=== PATIENT | female | born 1990 | race Caucasian/White ===

== ENCOUNTER → 2017-02-22 | Outpatient (REF) | payer MEDICAID ==
[~2017-02-22] MED LIST: ACET50TA PO; IBUP-1114 PO; PRENTAB9 PO; PROZ20CA11 PO
[2017-02-22 19:08] LABS: MEAN CORPUSCULAR HGB CONC 34.6 g/dl (32.0-36.5); MEAN CORPUSCULAR VOLUME 92.6 fl (80.0-96.0); RED CELL DISTRIBUTION WIDTH 12.9 % (11.5-14.5); WHITE BLOOD COUNT 15.9 K/mm3 (4.0-10.0)
== END ==
LOC: M LAB REF 13:59
PROVIDERS: ATTEND Advanced Practice Midwife
DX: Z34.83 Encounter for supervision of other normal pregnancy, third trimester (principal); Z36 Encounter for antenatal screening of mother; Z3A.00 Weeks of gestation of pregnancy not specified

== ENCOUNTER → 2017-02-26 | Outpatient (CLI) | payer MEDICAID | LOC: M LAB 11:25 | PROVIDERS: ATTEND Advanced Practice Midwife | DX: Z36 Encounter for antenatal screening of mother (principal); Z3A.00 Weeks of gestation of pregnancy not specified ==

== ENCOUNTER → 2017-03-23 | Outpatient (REF) | payer MEDICAID | LOC: M LAB REF 13:22 | PROVIDERS: ATTEND Advanced Practice Midwife | DX: Z34.83 Encounter for supervision of other normal pregnancy, third trimester (principal) ==

== ENCOUNTER 2017-03-25 00:17 | Outpatient (CLI) | payer MEDICAID ==
[~2017-03-25] VITALS: Ht 157.5 cm; Wt 80.0 kg
[2017-03-25 00:43] VITALS: BP 117/71
[2017-03-25 08:22] VITALS: BP 111/62
== END 2017-03-25 08:40 | disposition home or self-care (01) ==
LOC: M LDO 00:17
PROVIDERS: ATTEND Obstetrics & Gynecology
DX: O47.03 False labor before 37 completed weeks of gestation, third trimester (principal); Z3A.36 36 weeks gestation of pregnancy; Z88.2 Allergy status to sulfonamides

== ENCOUNTER 2017-04-15 23:48 | Inpatient (IN) | payer MEDICAID, OTHER ==
[~2017-04-15] VITALS: Ht 157.5 cm; Wt 83.0 kg
[2017-04-16] VITALS (16 sets, daily range): BP systolic 103–132; BP diastolic 51–73
[2017-04-16] MEDS ORDERED: LR 1,000 ML IV SCH (00:49)
[2017-04-16] MEDS ORDERED: LACTATED RINGER'S 1000 ML IV STA (00:49)
[2017-04-16 01:22] LABS: MEAN CORPUSCULAR HEMOGLOBIN 31.3 pg (27.0-33.0); MEAN CORPUSCULAR HGB CONC 35.1 g/dl (32.0-36.5); MEAN CORPUSCULAR VOLUME 89.1 fl (80.0-96.0); RED CELL DISTRIBUTION WIDTH 13.1 % (11.5-14.5); WHITE BLOOD COUNT 23.5 10^3/uL (4.0-10.0)
[2017-04-16] MEDS ORDERED: OXYTOCIN 30 UNITS IN 0.9% NaCl 500ML IV BAG (J2590) As Ordered ONE (01:53)
--- NOTE | 2017-04-16 01:57 | HPEPDOC ---
Obstetrical History & Physical General Date of Admission Apr 16, 2017 at 00:47 Primary Care Physician: JEAN MADDOX CNM History of Present Illness Patient is a 27 year-old female who is a at 39.2 weeks gestation with an ADALI of 04/21/17 based off of her 1st trimester ultrasound and consistent with her LMP. She initiated care in her first trimester and transferred her care to [facility]. Her has been complicated by depression and anxiety as she stopped taking her antidepressive medication with . She has been see by [facility] for counseling and is planning on starting back on her Prozac after delivery. She presents to L&D with complaints of contractions every 5 minutes for 1.5 hours and bloody show. She denies leaking of fluid. Reports active movement. Chief Complaint: Contractions, term, Active Labor Information Provided By: Patient Age: 27 : 3 Term: 1 Pre-term: 0 Abortions: 1 Livin Dating Final EDC: Apr 21, 2017 Final EDC by: 1st trimester (US) LMP: Jul 14, 2016 EGA at Admission: 39.2 Antepartum Course Height (inches): 62 Pre- weight (lbs.): 135 Admission Weight (lbs.): 182 Change in Weight (lbs.): 47 Past Medical History Past Obstetrical History : Past Obstetrical History: Multigravida Gestation: 42 Type of Delivery: Spontaneous Vaginal Del. (January 2011) Sex of : Female (weighting 7 lbs 2 oz. ) Complications: No EMERGENCY MANAGEMENT SPECIALIST History: History of STD Past Medical History Medical History Varicella as a child Surgical History: Denies/None Family History Significant Family History: Other (father with alcoholism) Social History Social history Patient caring for her father, who has alcoholism. FOB is not involved. Marital Status: Single Psychosocial History: Anxiety, Depression * Smoker: current smoker Alcohol: Denies Drugs: denies Abuse Violence Screening Have you been hit/kicked/slapp: No Have you been sexually assault: No Imunizations Tdap status: current Allergies Coded Allergies: Sulfa Antibiotics (Verified Adverse Reaction, Unknown, RASH, 03/25/17) Physical Examination Physical Examination GENERAL: Alert and oriented times three. BREAST: . ABDOMEN: Gravid and non-tender to touch. FETUS: Is vertex (VTX) by sterile vaginal examination (SVE), fetus is vertex ( VTX) by Sanjay. HEART RATE: Regular rate and rhythm. LUNGS: Clear to auscultation (CTA). EXTREMITIES: No edema. No clonus. Laboratory Data 24H LABS Laboratory Tests 2 04/16/17 00:53: Serology Scanned Report Hepatitis B Testing 04/16/17 01:01: Nucleated Red Blood Cells % (auto) 0.0 CBC/BMP Laboratory Tests 04/16/17 01:01 Red Blood Count 3.84 L, Mean Corpuscular Volume 89.1, Mean Corpuscular Hemoglobin 31.3, Mean Corpuscular Hemoglobin Concent 35.1, Red Cell Distribution Width 13.1 Pertinent Laboratoy Data Blood Type: B+ RBC Antibody Screen: Negative HIV: Negative Hepatitis B: Negative Hepatitis C: Negative Rapid Plasma Reagin: Nonreactive Rubella: Immune Varicella: Positive Chlamydia/Gonorrhea: Negative Group B Streptococcus: Negative Quad Screen Test: Negative Glucose Tolerance Test: 76 Vaginal Examination Dilation: 4 cm Effacement: Other (100%) Station: 0 Cervical Position: Anterior Presentation: Cephalic presentation Position: Four quadrants Assessment Heart Rate (FHR): 130 Variability: Moderate Accelerations: Positive Decelerations: None Tocometer Contractions: Yes Frequency: regular, other (2-3 minutes) Multi-drug resistant Organism: No history of MDRO Assessment/Plan Assessment IUP at 39.2 weeks gestation Active labor Category I FHR tracing Plan Admit to L&D. Saline lock and labs per protocol. OOB ad iliana clear liquid diet Anesthesia consult per patient's request. Anticipate cervical change and . JEAN MADDOX CNM Apr 16, 2017 01:57
[2017-04-16] MEDS ORDERED: EPIDURAL/PCA KEYS XX PRN (02:06)
[2017-04-16] MEDS ORDERED: EPIDURAL COMMENT XX SCH (02:06)
[2017-04-16] MEDS ORDERED: ePHEDrine SULFATE 25 MG/5 ML(5MG/ML) SYRINGE IV PRN (02:06)
[2017-04-16] MEDS ORDERED: NALOXONE INJ 0.4 MG/1 ML VIAL (J2310) IV PRN (02:06)
[2017-04-16] MEDS ORDERED: LACTATED RINGER'S 1000 ML IV PRN (02:06)
[2017-04-16] MEDS ORDERED: ONDANSETRON 4MG/2ML VIAL (J2405) IV PRN (02:06)
[2017-04-16] MEDS ORDERED: FENTANYL/ROPIVACAINE/NACL BAG 200 ML EPIDURAL SCH (02:06)
[2017-04-16] MEDS ORDERED: FENTANYL 2MCG/ML ROPIVACAINE 0.2% IN 0.9% NACL 200ML IVBAG As Ordered ONE (02:06)
[2017-04-16] MEDS ORDERED: REFRIGERATOR IV KEYS XX PRN (02:06)
[2017-04-16] MEDS ORDERED: diphenhydrAMINE INJ 50MG/ML VIAL (J1200) IV PRN (02:06)
[2017-04-16] MEDS ORDERED: OXYTOCIN DRIP 30 UNITS in APPROPRIATE DILUENT 1 EA IV SCH (06:43)
[2017-04-16] MEDS ORDERED: RHOGAM 300 MCG (1500 IU) INJ (J2790) IM SCH (06:45)
[2017-04-16] MEDS ORDERED: MEASLES,MUMPS,RUBELLA VACCINE INJ (MMR-II) (90707) SC SCH (06:45)
[2017-04-16] MEDS ORDERED: ACETAMINOPHEN 500 MG TAB PO PRN (06:45)
[2017-04-16] MEDS ORDERED: DIBUCAINE 1% OINTMENT 30GM TOP PRN (06:45)
[2017-04-16] MEDS ORDERED: DOCUSATE SODIUM 100 MG CAP PO PRN (06:45)
[2017-04-16] MEDS ORDERED: METHYLERGONOVINE MALEATE 0.2 MG TAB PO PRN (06:45)
[2017-04-16] MEDS ORDERED: ANUSOL HC CREAM 30GM TOP PRN (06:45)
--- NOTE | 2017-04-16 07:11 | DNPDOC ---
[facility] Delivery Note Delivery Note DATE OF DELIVERY: 04/16/17 at 0600. PROCEDURE: Spontaneous vaginal delivery. Provider: Jean Parks CNM, SAUD ANESTHESIA: epidural ESTIMATED BLOOD LOSS: 200 mL. FINDINGS: 6 pounds 14 ounces, 3110 grams, female , Score 8/9. DELIVERY SUMMARY: Patient is a 27-year-old female who is now a at 39.3 weeks gestation who presented to L&D in active labor. She received an epidural for pain management. She progressed to fully dilated at 0552 and pushed to a living female in the ZEKE position with restitution to ROT at 0600. The shoulders delivered with ease and the corpus immediately followed. The baby was placed on the maternal abdomen, skin to skin, active and crying. The cord was clamped x 2 after pulsation stopped and cut by the patient's father. A 3 vessel cord was noted. The placenta delivered spontaneously and intact via Black mechanism at 0615. Uterine hemostasis achieved via rapid infusion of IV Pitocin and fundal massage. The perineum and vagina were inspected and found to have a left labial abrasion that required no repair. Mom is going to bottle feed . She is naming the baby "Melissa." JEAN PARKS CNM Apr 16, 2017 07:11
[2017-04-16] MEDS: PRENATAL VITAMINS CHEWABLE TABLET PO SCH (09:00)
[2017-04-16] MEDS: FLUoxetine 20 MG CAP PO SCH (10:59)
[2017-04-16] MEDS: IBUPROFEN 800 MG TAB PO PRN ×2 (11:02→19:57)
[2017-04-17 06:30] VITALS: BP 109/59
[2017-04-17] MEDS: PRENATAL VITAMINS CHEWABLE TABLET PO SCH (09:00)
[2017-04-17] MEDS: FLUoxetine 20 MG CAP PO SCH (09:14)
[2017-04-17] MEDS: IBUPROFEN 800 MG TAB PO PRN (11:27)
[2017-04-17] MEDS ORDERED: IBUP-1114 PO (14:56)
[2017-04-17] MEDS ORDERED: PRENTAB9 PO (14:56)
[2017-04-17] MEDS ORDERED: ACET50TA PO (14:56)
[2017-04-17] MEDS ORDERED: PROZ20CA11 PO (14:57)
== END 2017-04-17 16:10 | disposition home or self-care (01) | DRG 560 ==
LOC: M LDO 23:48 → M LDI 04-16 00:47 → M OBS 04-16 08:47
PROVIDERS: ADMIT Advanced Practice Midwife; ATTEND Advanced Practice Midwife
PROC: 10E0XZZ Delivery of Products of Conception, External Approach (ICD-10-PCS; principal; 2017-04-16)
PROC: 10907ZC Drainage of Amniotic Fluid, Therapeutic from Products of Conception, Via Natural or Artificial Opening (ICD-10-PCS; 2017-04-16)
DX: O99.344 Other mental disorders complicating childbirth (principal); F32.9 Major depressive disorder, single episode, unspecified; F41.9 Anxiety disorder, unspecified; O99.334 Smoking (tobacco) complicating childbirth; F17.210 Nicotine dependence, cigarettes, uncomplicated; Z37.0 Single live birth; Z3A.39 39 weeks gestation of pregnancy

== ENCOUNTER → 2017-11-28 | Outpatient (REF) | payer OTHER ==
[2017-11-28 19:01] LABS: APPEARANCE, URINE HAZY (CLEAR); BACTERIA, URINE AUTO 1+ (NEGATIVE); BILIRUBIN, URINE AUTO NEGATIVE (NEGATIVE); BLOOD, URINE BLOOD 1+ (NEGATIVE); COLOR, URINE YELLOW (YELLOW); GLUCOSE, URINE (UA) AUTO NEGATIVE (NEGATIVE); KETONE, URINE AUTO 1+ mg/dL (NEGATIVE); LEUKOCYTE ESTERASE, URINE AUTO 2+ (NEGATIVE); MUCUS, URINE SMALL (NEGATIVE); NITRITE, URINE AUTO NEGATIVE (NEGATIVE); PROTEIN, URINE AUTO 1+ mg/dL (NEGATIVE); RBC, URINE AUTO 5 /HPF (0-3); SPECIFIC GRAVITY URINE AUTO 1.021 (1.002-1.035); SQUAMOUS EPITHELIAL CELL UR AU 1 /HPF (0-6); WBC, URINE AUTO TNTC /HPF (0-3)
== END ==
LOC: M LAB REF 11:43
DX: N39.0 Urinary tract infection, site not specified (principal)

== ENCOUNTER → 2018-03-10 | Outpatient (REF) | payer OTHER ==
[2018-03-10 13:30] LABS: HEMATOCRIT 36.2 % (36.0-47.0); HEMOGLOBIN 12.6 g/dl (12.0-15.5); MEAN CORPUSCULAR HEMOGLOBIN 30.5 pg (27.0-33.0); MEAN CORPUSCULAR HGB CONC 34.8 g/dl (32.0-36.5); MEAN CORPUSCULAR VOLUME 87.7 fl (80.0-96.0); PLATELET COUNT, AUTOMATED 264 10^3/uL (150-450); RED BLOOD COUNT 4.13 10^6/uL (4.00-5.40); RED CELL DISTRIBUTION WIDTH 13.8 % (11.5-14.5); WHITE BLOOD COUNT 14.7 10^3/uL (4.0-10.0)
[2018-03-10 14:49] LABS: HCG, SERUM QUANTITATIVE 31358 MIU/ML
[2018-03-11 14:02] LABS: RUBELLA IgG QUALITATIVE IMMUNE (IMMUNE)
[2018-03-11 14:08] LABS: HBsAg Prenatal NEGATIVE (NEGATIVE)
[2018-03-11 14:31] LABS: HIV 1&2 SCREEN CENTAUR NEGATIVE (NEGATIVE)
== END ==
LOC: M LAB REF 12:45
DX: O36.80X0 Pregnancy with inconclusive fetal viability, not applicable or unspecified (principal)

== ENCOUNTER → 2018-04-21 | Outpatient (REF) | payer OTHER ==
[2018-04-22 11:12] LABS: HEPATITIS C VIRUS ABY INDEX < 0.0 INDEX (<0.8)
== END ==
LOC: M LAB REF 13:06
DX: Z34.82 Encounter for supervision of other normal pregnancy, second trimester (principal)

== ENCOUNTER → 2018-08-24 | Outpatient (REF) | payer OTHER ==
[~2018-08-24] MED LIST changes: -ACET50TA PO; +MAPA500T2 PO
== END ==
LOC: M LAB REF 17:23
PROVIDERS: ATTEND Advanced Practice Midwife
DX: Z34.83 Encounter for supervision of other normal pregnancy, third trimester (principal); Z3A.00 Weeks of gestation of pregnancy not specified

== ENCOUNTER → 2018-08-26 | Outpatient (CLI) | payer OTHER ==
--- NOTE | 2018-08-26 22:08 | REP ---
Symmetric ultrasound, third trimester for uterine size, date discrepancy: There is a single intrauterine gestation in a vertex presentation. There is movement and cardiac activity. The heart rate is 103 beats per minute. The placenta is posterior fundal without previa or abruptio and grade III maturity. The amniotic fluid volume subjectively is normal. The amniotic fluid index is 9.7/7.2 - 23.1. heart rate is 103 beats per minute. The cervix measures 3.9 cm length. By today's ultrasound the gestational age is 35 weeks 5 days/ADALI 09/25/2018. By LMP gestational age is 38 weeks 4 days/ADALI 09/05/2089. weight is 2940 grams/6 pounds, 7 ounces. This is the 27th percentile for 38 weeks 4 days. Umbilical artery Doppler assessment: S/D ratio 2.43 (2.30-3.30) Resistive Index 0.59 (0.59-0.75 Diastolic Velocity 13.6 (>10 cm/sec) Electronically Signed by Anam Rao MD 08/26/2018 10:00 P
== END ==
LOC: M RAD 17:34
PROVIDERS: ATTEND Advanced Practice Midwife
DX: O26.843 Uterine size-date discrepancy, third trimester (principal); Z3A.35 35 weeks gestation of pregnancy

== ENCOUNTER → 2018-08-31 | Outpatient (REF) | payer OTHER ==
[2018-08-31 22:42] LABS: CHLAMYDIA DNA AMPLIFICATION NEGATIVE (NEGATIVE); GC DNA AMPLIFICATION NEGATIVE (NEGATIVE)
== END ==
LOC: M LAB REF 17:09
PROVIDERS: ATTEND Advanced Practice Midwife
DX: Z34.83 Encounter for supervision of other normal pregnancy, third trimester (principal); Z3A.00 Weeks of gestation of pregnancy not specified

== ENCOUNTER 2018-09-01 14:06 | Inpatient (IN) | payer OTHER ==
[2018-09-01] VITALS (32 sets, daily range): BP systolic 96–134; BP diastolic 53–73
[~2018-09-01] VITALS: Ht 157.5 cm; Wt 76.3 kg
[2018-09-01 15:24] LABS: HEMATOCRIT 33.4 % (36.0-47.0); HEMOGLOBIN 11.3 g/dl (12.0-15.5); MEAN CORPUSCULAR HEMOGLOBIN 30.9 pg (27.0-33.0); MEAN CORPUSCULAR HGB CONC 33.8 g/dl (32.0-36.5); MEAN CORPUSCULAR VOLUME 91.3 fl (80.0-96.0); PLATELET COUNT, AUTOMATED 263 10^3/uL (150-450); RED BLOOD COUNT 3.66 10^6/uL (4.00-5.40); WHITE BLOOD COUNT 14.6 10^3/uL (4.0-10.0)
--- NOTE | 2018-09-01 15:52 | HPE ---
DATE OF ADMISSION: 09/01/2018 28-year-old G4, P2-0-1-2 female at 39-3/7 weeks gestation by last menstrual period (LMP) consistent with 15 week ultrasound presents for induction of labor. She has occasional contractions. She denies vaginal bleeding. There is good movement. COURSE: The patient's initial care was with [facility] where she had two visits. She had subsequent total of two more visits at [facility] during her . OBSTETRICAL HISTORY: 1. January 2011. 42 weeks vaginal delivery of 7 pound 8 ounce female . 2. February 2016. Miscarriage. 3. April 2017. 39 week vaginal delivery, 6 pound 12 ounce female infant. MEDICAL HISTORY: 1. Depression. 2. Superficial melanoma. 3. Anxiety. SURGICAL HISTORY: Removal of melanoma. ALLERGIES: SULFA. SOCIAL HISTORY: Father of the baby is involved. The patient smokes a small number of cigarettes daily. She denies alcohol or drug use during . FAMILY HISTORY: Noncontributory. PHYSICAL EXAMINATION: Blood pressure 124/74, pulse 84, no apparent distress. Head and neck: Normal. Lungs: Clear. Heart: Regular rate and rhythm. Abdomen: Nontender. Gravid. heart tones: Category 1. Sterile vaginal exam: 2 cm, 50%, -2, posterior, soft. Vertex. Contractions irregular. Extremities: Nontender. LABS: Blood type B+, rubella immune. RPR nonreactive. GBS negative 08/24/2018. ASSESSMENT: 28-year-old G4, P2-0-1-2 female at 39-3/7 weeks gestation presents from labor induction. PLAN: Admit on 09/01/2018. Risks of induction were discussed.
[2018-09-01] MEDS ORDERED: miSOPROStol 50 MCG 1/2 TAB (S0191) SL SCH (16:00)
[2018-09-01] MEDS ORDERED: LR 1,000 ML IV SCH (19:18)
[2018-09-01] MEDS ORDERED: OXYTOCIN DRIP 30 UNITS in APPROPRIATE DILUENT 1 EA IV SCH (19:30)
[2018-09-01] MEDS ORDERED: FENTANYL 2MCG/ML ROPIVACAINE 0.2% IN 0.9% NACL 100ML IVBAG As Ordered ONE (22:16)
[2018-09-01] MEDS ORDERED: REFRIGERATOR IV KEYS XX PRN (23:45)
[2018-09-01] MEDS ORDERED: EPIDURAL/PCA KEYS XX PRN (23:45)
[2018-09-01] MEDS ORDERED: FENTANYL/ROPIVACAINE/NACL BAG 100 ML EPIDURAL SCH (23:45)
[2018-09-01] MEDS ORDERED: LACTATED RINGER'S 1000 ML IV PRN (23:45)
[2018-09-01] MEDS ORDERED: ePHEDrine SULFATE 25 MG/5 ML(5MG/ML) SYRINGE IV PRN (23:45)
[2018-09-01] MEDS ORDERED: diphenhydrAMINE INJ 50MG/ML VIAL (J1200) IV PRN (23:45)
[2018-09-01] MEDS ORDERED: ONDANSETRON 4MG/2ML VIAL (J2405) IV PRN (23:45)
[2018-09-01] MEDS ORDERED: EPIDURAL COMMENT XX SCH (23:45)
[2018-09-01] MEDS ORDERED: NALOXONE INJ 0.4 MG/1 ML VIAL (J2310) IV PRN (23:45)
[2018-09-02] VITALS (14 sets, daily range): BP systolic 101–117; BP diastolic 51–68
[2018-09-02] MEDS ORDERED: OXYTOCIN DRIP 30 UNITS in APPROPRIATE DILUENT 1 EA IV ONE (02:15)
[2018-09-02] MEDS ORDERED: RHOGAM 300 MCG (1500 IU) INJ (J2790) IM SCH (02:15)
[2018-09-02] MEDS ORDERED: METHYLERGONOVINE MALEATE 0.2 MG TAB PO PRN (02:15)
[2018-09-02] MEDS ORDERED: ONDANSETRON 4MG/2ML VIAL (J2405) IV PRN (02:15)
[2018-09-02] MEDS ORDERED: DOCUSATE SODIUM 100 MG CAP PO PRN (02:15)
[2018-09-02] MEDS ORDERED: DIBUCAINE 1% OINTMENT 30GM TOP PRN (02:15)
[2018-09-02] MEDS ORDERED: MEASLES,MUMPS,RUBELLA VACCINE INJ (MMR-II) (90707) SC SCH (02:15)
[2018-09-02] MEDS: PRENATAL VITAMINS CHEWABLE TABLET PO SCH (09:35)
[2018-09-02] MEDS: ACETAMINOPHEN 500 MG TAB PO PRN ×3 (09:37→22:08)
[2018-09-02] MEDS: IBUPROFEN 800 MG TAB PO PRN ×2 (10:04→17:43)
--- NOTE | 2018-09-02 13:14 | DN ---
DATE OF DELIVERY: 09/02/2018 PREDELIVERY DIAGNOSIS: Term , labor induction. POSTDELIVERY DIAGNOSIS: Delivered. PROCEDURE: Spontaneous vaginal delivery. SORT LINE: Dr. Edmar Enrique ANESTHESIA: Epidural. ESTIMATED BLOOD LOSS: 300 mL. FINDINGS: 6 pound 7 ounce female infant, scores 8 and 9. DELIVERY SUMMARY: After second stage consisting of a single push, the patient had spontaneous delivery of a 6 pound 7 ounce female with scores of 8 and 9, under epidural anesthesia. Loose nuchal cord times one was delivered through. The shoulders delivered with ease. The infant was handed to the mother and cried immediately. The cord was doubly clamped and cut. The placenta delivered spontaneously and appeared to be intact. The patient received IV Pitocin immediately after delivery of the placenta. There were no vaginal lacerations present. Sponge and instrument counts were correct.
[2018-09-03] MEDS: IBUPROFEN 800 MG TAB PO PRN (01:10)
[2018-09-03 06:43] VITALS: BP 102/58
[2018-09-03] MEDS ORDERED: MOTR200T44 PO (08:15)
[2018-09-03] MEDS ORDERED: PREN27TA3 PO (08:15)
[2018-09-03] MEDS ORDERED: PROZ20CA11 PO (08:15)
[2018-09-03] MEDS ORDERED: APAP500T10 PO (08:15)
[2018-09-03] MEDS: PRENATAL VITAMINS CHEWABLE TABLET PO SCH (08:38)
[2018-09-03] MEDS: ACETAMINOPHEN 500 MG TAB PO PRN (08:39)
== END 2018-09-03 12:41 | disposition home or self-care (01) | DRG 560 ==
LOC: M LDI 14:06 → M OBS 09-02 05:10
PROVIDERS: ADMIT Specialist; ATTEND Specialist
PROC: 10E0XZZ Delivery of Products of Conception, External Approach (ICD-10-PCS; principal; 2018-09-02)
PROC: 3E0P7GC Introduction of Other Therapeutic Substance into Female Reproductive, Via Natural or Artificial Opening (ICD-10-PCS; 2018-09-02)
DX: O99.334 Smoking (tobacco) complicating childbirth (principal); Z3A.39 39 weeks gestation of pregnancy; O69.81X0 Labor and delivery complicated by cord around neck, without compression, not applicable or unspecified; Z37.0 Single live birth; F17.210 Nicotine dependence, cigarettes, uncomplicated

== ENCOUNTER 2019-09-05 10:14 | Emergency (ER) | payer OTHER ==
[~2019-09-05] VITALS: Ht 157.5 cm; Wt 68.3 kg
[~2019-09-05 10:14] MED LIST changes: +APAP500T10 PO; +MOTR200T44 PO; +PREN27TA3 PO
[2019-09-05] MEDS ORDERED: ISOVUE-370 76% 100ML VIAL (Q9967) As Ordered ONE (11:25)
[2019-09-05 11:29] LABS: BASO % 0.5 % (0.0-1.0); EOS # 1.2 10^3/uL (0.0-0.5); EOS % 13.7 % (0.0-3.0); HEMATOCRIT 43.9 % (36.0-47.0); LYMPH # 2.4 10^3/uL (1.5-5.0); LYMPH % 27.7 % (24.0-44.0); MEAN CORPUSCULAR HEMOGLOBIN 30.2 pg (27.0-33.0); MEAN CORPUSCULAR HGB CONC 34.2 g/dl (32.0-36.5); MEAN CORPUSCULAR VOLUME 88.3 fl (80.0-96.0); MONO # 0.9 10^3/uL (0.0-0.8); MONO % 10.4 % (0.0-5.0); NEUTROPHILS % 47.5 % (36.0-66.0); PLATELET COUNT, AUTOMATED 280 10^3/uL (150-450); RED BLOOD COUNT 4.97 10^6/uL (4.00-5.40); WHITE BLOOD COUNT 8.5 10^3/uL (4.0-10.0)
[2019-09-05] MEDS ORDERED: ALBUTEROL SULFATE 2.5 MG/0.5 ML INH NEB SOLN NEB ONE ×2 (11:45→13:30)
[2019-09-05 11:57] LABS: ALBUMIN 3.9 GM/DL (3.2-5.2); ALT/SGPT 28 U/L (12-78); BILIRUBIN,DIRECT < 0.1 MG/DL (0.0-0.2); BILIRUBIN,TOTAL 0.3 MG/DL (0.2-1.0); LIPASE 108 U/L (73-393)
--- NOTE | 2019-09-05 12:30 | REP ---
RIGHT UPPER QUADRANT ULTRASOUND: Real-time ultrasound evaluation of right upper quadrant performed. Gallbladder demonstrates no evidence of intraluminal sludge or calculi, wall thickening or pericholecystic fluid. There is no intrahepatic or extrahepatic biliary dilatation, common bile duct measuring 4 mm in diameter. Liver and pancreas demonstrate no gross mass. Right kidney demonstrates no hydronephrosis with normal size 10.5 cm in length. IMPRESSION: Negative right upper quadrant ultrasound. Electronically Signed by Anam Call MD 09/05/2019 07:55 P
--- NOTE | 2019-09-05 12:33 | REP ---
CHEST, TWO VIEWS: There is no evidence of acute infiltrate. No pleural effusion is seen. The heart is normal in size. The mediastinal silhouette is unremarkable. The visualized osseous structures are intact. IMPRESSION: No acute pulmonary disease. Electronically Signed by Anam Call MD 09/05/2019 07:55 P
[2019-09-05 12:43] LABS: INFLUENZA A AMPLIFICATION NEGATIVE (NEGATIVE); INFLUENZA B AMPLIFICATION NEGATIVE (NEGATIVE)
[2019-09-05] MEDS ORDERED: methylPREDNISolone INJ 125 MG/2 ML VIAL (J2930) IV ONE (13:30)
--- NOTE | 2019-09-05 13:35 | REP ---
CT ABDOMEN AND PELVIS WITH IV BUT WITHOUT ORAL CONTRAST: HISTORY: Right lower quadrant pain, rule out appendicitis. COMPARISON STUDY: July 29, 2013. CT CONTRAST DOSE: 100 mL of intravenous Isovue 370 CT FINDINGS: Digital preliminary powder nipper radiograph demonstrates a unremarkable bowel gas pattern. Umbilical jewelry is noted. The lung bases are clear on axial CT images. The liver is normal in size homogeneous in texture. Spleen is homogeneous in texture as well and at the upper range of normal in size measuring 11.2 cm in greatest diameter. No adrenal lesion is seen. No abnormality is noted in the pancreas or the gallbladder. The kidneys enhance symmetrically and are morphologically intact. No retroperitoneal mass or adenopathy is observed. A normal appendix is seen in the right lower quadrant without CT evidence of appendicitis. There is a right ovarian cyst measuring 5.2 x 3.8 x 4.0 cm. The left ovary is unremarkable. No uterine abnormality is observed. No abnormality is noted in the urinary bladder. Vaginal tampon is noted in place. IMPRESSION: There is a 5.2 cm cyst visible in the right ovary. Normal appendix. Otherwise negative. Electronically Signed by Marshall Nettles MD 09/05/2019 05:58 P
[2019-09-05] MEDS ORDERED: PROAAER10 INH (14:52)
[2019-09-05] MEDS ORDERED: PRED20TA PO (14:53)
[2019-09-05 14:59] VITALS: BP 105/62
--- NOTE | 2019-09-06 10:46 | ED PDOC ---
Post-Departure Follow-Up nena trejo and laurent faxed formal report of ct abd/p for fu Kwan Nelson MD Sep 06, 2019 10:46
--- NOTE | 2019-09-07 06:15 | ECGEPIP ---
[facility] - ED Test Date: 2019-09-05 Pat Name: CASSANDRA MAYNARD Department: Room: - Gender: Female Route Agent: : 1990 Requested By: RED Phillips PA-C Order Number: [id number] Reading MD: Michael Ramires Measurements Intervals [place] Rate: 73 P: 60 SC: 141 QRS: 83 QRSD: 89 T: 47 QT: 392 QTc: 435 Interpretive Statements SINUS RHYTHM WITH SINUS ARRHYTHMIA POOR R WAVE PROGRESSION NO PRIORS FOR COMPARISON Electronically Signed on 09-07-2019 6:15:19 EST by Michael Ramires
== END 2019-09-05 15:24 | disposition home or self-care (01) ==
LOC: M ED 10:14
DX: J45.901 Unspecified asthma with (acute) exacerbation (principal); J06.9 Acute upper respiratory infection, unspecified; B34.9 Viral infection, unspecified; N83.201 Unspecified ovarian cyst, right side; F33.9 Major depressive disorder, recurrent, unspecified; F41.9 Anxiety disorder, unspecified; Z79.899 Other long term (current) drug therapy; Z88.1 Allergy status to other antibiotic agents; Z88.2 Allergy status to sulfonamides; F17.210 Nicotine dependence, cigarettes, uncomplicated
CPT/HCPCS: 71046; 74177; 76705; 80047; 80076; 81001; 83690; 84702; 85025; 87631; 87880; 93005; 94640; 96374; 99284; J2930; Q9967

== ENCOUNTER 2019-10-04 18:34 | Emergency (ER) | payer OTHER ==
[~2019-10-04] VITALS: Ht 157.5 cm; Wt 68.2 kg
[~2019-10-04 18:34] MED LIST changes: +PRED20TA PO; +PROAAER10 INH
[2019-10-04] MEDS ORDERED: COMBIVENT RESPIMAT 100-20MCG INHALER 4GM INH ONE ×2 (19:00→22:30)
--- NOTE | 2019-10-04 19:44 | ECGEPIP ---
[facility] - ED Test Date: 2019-10-04 Pat Name: CASSANDRA MAYNARD Department: Room: - Gender: Female Installation Drafter: OVI : 1990 Requested By: ERNIE Doherty Order Number: [id number] Reading MD: Silvia Nevarez Measurements Intervals [place] Rate: 70 P: 59 RI: 142 QRS: 91 QRSD: 89 T: 62 QT: 390 QTc: 422 Interpretive Statements SINUS RHYTHM WITH MARKED SINUS ARRHYTHMIA BORDERLINE RIGHT AXIS DEVIATION SIMILAR 09/05/19 Electronically Signed on 10-04-2019 19:44:17 EDT by Silvia Nevarez
[2019-10-04 19:49] LABS: BASO # 0.1 10^3/uL (0.0-0.2); BASO % 0.7 % (0.0-1.0); EOS # 0.9 10^3/uL (0.0-0.5); EOS % 8.5 % (0.0-3.0); HEMATOCRIT 43.5 % (36.0-47.0); HEMOGLOBIN 14.6 g/dl (12.0-15.5); LYMPH # 2.2 10^3/uL (1.5-5.0); LYMPH % 20.9 % (24.0-44.0); MEAN CORPUSCULAR HEMOGLOBIN 29.9 pg (27.0-33.0); MEAN CORPUSCULAR HGB CONC 33.6 g/dl (32.0-36.5); MEAN CORPUSCULAR VOLUME 89.1 fl (80.0-96.0); MONO # 0.5 10^3/uL (0.0-0.8); MONO % 4.9 % (0.0-5.0); NEUTROPHILS # 6.7 10^3/uL (1.5-8.5); NEUTROPHILS % 64.6 % (36.0-66.0); PLATELET COUNT, AUTOMATED 319 10^3/uL (150-450); RED BLOOD COUNT 4.88 10^6/uL (4.00-5.40); WHITE BLOOD COUNT 10.4 10^3/uL (4.0-10.0)
[2019-10-04 20:01] LABS: INR 1.07; PROTHROMBIN TIME 13.6 SECONDS (11.8-14.0)
[2019-10-04 20:04] LABS: D-DIMER QUANT 579.27 ng/ml (<500)
--- NOTE | 2019-10-04 20:05 | REP ---
PORTABLE CHEST: HISTORY: Dyspnea. COMPARISON: 09/05/2019 The technique utilized in obtaining the radiograph has magnified the cardiac silhouette and accentuated the interstitial markings. The superior mediastinal structures are midline. The cardiac silhouette is unremarkable in size, shape, and position. The diaphragmatic surfaces of the lungs are regular, and the costophrenic angles are clear. The pulmonary lyles are clear. The imaged osseous structures are intact. IMPRESSION: There is no acute cardiopulmonary disease. Electronically Signed by Xander Moore DO 10/05/2019 10:18 A
[2019-10-04 20:28] LABS: ALBUMIN 3.7 GM/DL (3.2-5.2); ALT/SGPT 24 U/L (12-78); BILIRUBIN,DIRECT 0.1 MG/DL (0.0-0.2); BILIRUBIN,TOTAL 0.5 MG/DL (0.2-1.0); BLOOD UREA NITROGEN 8 MG/DL (7-18); CARBON DIOXIDE LEVEL 26 MEQ/L (21-32); CHLORIDE LEVEL 111 MEQ/L (98-107); CPK CREATINE PHOSPHOKINASE 272 U/L (26-192); CREATININE FOR GFR 0.87 MG/DL (0.55-1.30); GLOMERULAR FILTRATION RATE > 60.0 (>60); GLUCOSE, FASTING 80 MG/DL (70-100); SODIUM LEVEL 141 MEQ/L (136-145); THYROID STIMULATING HORMONE 0.952 uIU/ML (0.358-3.740); TOTAL PROTEIN 6.9 GM/DL (6.4-8.2); TROPONIN I < 0.02 NG/ML (< 0.10)
[2019-10-04] MEDS ORDERED: ISOVUE-370 76% 100ML VIAL (Q9967) As Ordered ONE (21:08)
--- NOTE | 2019-10-04 21:41 | REPVR ---
PROCEDURE INFORMATION: Exam: CT Angiography Chest With Contrast Exam date and time: 10/04/2019 9:29 PM Age: 29 years old Clinical indication: Chest pain; Additional info: Chest pain, SOB TECHNIQUE: Imaging protocol: Computed tomographic angiography of the chest with intravenous contrast. 3D rendering: MIP and/or 3D reconstructed images were created by the technologist. Radiation optimization: All CT scans at this facility use at least one of these dose optimization techniques: automated exposure control; mA and/or kV adjustment per patient size (includes targeted exams where dose is matched to clinical indication); or iterative reconstruction. Contrast material: ISOVUE 370; Contrast volume: 75 ml; Contrast route: IV; COMPARISON: SC PORTABLE CHEST X-RAY 10/04/2019 7:09 PM FINDINGS: Pulmonary arteries: Normal. No pulmonary emboli. Aorta: Unremarkable. No aortic aneurysm. No aortic dissection. Lungs: Mild diffuse bronchial wall thickening. Pleural space: Unremarkable. No pneumothorax. No pleural effusion. Heart: Unremarkable. No cardiomegaly. No pericardial effusion. Lymph nodes: Unremarkable. No enlarged lymph nodes. Bones/joints: Unremarkable. No acute fracture. Soft tissues: Unremarkable. IMPRESSION: No acute pulmonary embolism. 2. Mild bronchial wall thickening may reflect reactive airway disease or bronchitis. Electronically signed by: Shena Kemp On 10/04/2019 21:40:30 PM
[2019-10-04] MEDS ORDERED: AZITHROMYCIN 250MG TABLET PO ONE (22:30)
[2019-10-04] MEDS ORDERED: AZIT-12 PO (22:32)
[2019-10-04] MEDS ORDERED: PRED20TA PO (22:34)
[2019-10-04] MEDS ORDERED: ALBU83IN NEB (22:35)
[2019-10-04 22:54] VITALS: BP 158/67
== END 2019-10-04 22:55 | disposition home or self-care (01) ==
LOC: M ED 18:34 → EDBD 18:34 → M ED 22:55
DX: J40 Bronchitis, not specified as acute or chronic (principal); F17.200 Nicotine dependence, unspecified, uncomplicated; Z79.51 Long term (current) use of inhaled steroids; Z79.899 Other long term (current) drug therapy; Z88.2 Allergy status to sulfonamides
CPT/HCPCS: 71045; 71275; 80048; 80076; 82550; 82553; 84443; 85025; 85379; 85610; 87486; 87581; 87633; 87798; 93005; 93041; 94640; 94664; 94760; 99285; Q9967; U0002

== ENCOUNTER → 2022-08-14 | Outpatient (REF) | payer OTHER, MEDICAID ==
[~2022-08-14] MED LIST changes: +ALBU2.5V10 NEB; +AZIT-12 PO
[2022-08-14 16:41] LABS: BASO # 0.1 10^3/uL (0.0-0.2); BASO % 0.7 % (0.0-1.0); EOS # 0.4 10^3/uL (0.0-0.5); EOS % 3.4 % (0.0-3.0); HEMATOCRIT 45.7 % (36.0-47.0); HEMOGLOBIN 15.4 g/dl (12.0-15.5); LYMPH # 2.9 10^3/uL (1.5-5.0); LYMPH % 24.7 % (24.0-44.0); MEAN CORPUSCULAR HEMOGLOBIN 30.6 pg (27.0-33.0); MEAN CORPUSCULAR HGB CONC 33.7 g/dl (32.0-36.5); MEAN CORPUSCULAR VOLUME 90.7 fl (80.0-96.0); MONO # 0.6 10^3/uL (0.0-0.8); MONO % 4.8 % (2.0-8.0); NEUTROPHILS # 7.7 10^3/uL (1.5-8.5); PLATELET COUNT, AUTOMATED 313 10^3/uL (150-450); RED BLOOD COUNT 5.04 10^6/uL (4.00-5.40); WHITE BLOOD COUNT 11.7 10^3/uL (4.0-10.0)
[2022-08-14 17:16] LABS: THYROID STIMULATING HORMONE 2.611 uIU/ML (0.55-4.78)
[2022-08-14 17:19] LABS: FREE T4 1.12 NG/DL (0.89-1.76)
[2022-08-14 17:23] LABS: ALBUMIN 4.3 G/DL (3.2-5.2); ALKALINE PHOSPHATASE 79 U/L (46-116); ALT/SGPT 26 U/L (7.0-40); AST/SGOT 11 U/L (<34); BILIRUBIN,TOTAL 0.4 MG/DL (0.3-1.2); BLOOD UREA NITROGEN 10 MG/DL (9-23); CALCIUM LEVEL 9.8 MG/DL (8.5-10.1); CARBON DIOXIDE LEVEL 26 MMOL/L (20-31); CHLORIDE LEVEL 108 MMOL/L (98-107); CHOLESTEROL LEVEL 180 MG/DL (<200); CHOLESTEROL RISK RATIO 4.93 (<5); GLOMERULAR FILTRATION RATE > 60.0 (>60); GLUCOSE, FASTING 81 MG/DL (60-100); HDL CHOLESTEROL 36.5 MG/DL (>40); LDL CHOLESTEROL 129.3 MG/DL (<100); NON-HDL-C 144 MG/DL; POTASSIUM SERUM 4.7 MMOL/L (3.5-5.1); SODIUM LEVEL 139 MMOL/L (136-145); TOTAL PROTEIN 7.4 G/DL (5.7-8.2); TRIGLYCERIDES LEVEL 71 MG/DL (<150)
[2022-08-14 17:42] LABS: HEMOGLOBIN A1c 4.6 % (4.0-6.0)
== END ==
LOC: M LAB REF 16:11
PROVIDERS: ATTEND Nurse Practitioner Family
DX: Z68.32 Body mass index [BMI] 32.0-32.9, adult (principal); E55.9 Vitamin D deficiency, unspecified; R53.83 Other fatigue

== ENCOUNTER → 2024-05-01 | Outpatient (REF) | payer OTHER, MEDICAID | LOC: M LAB REF 20:32 | PROVIDERS: ATTEND Physician Assistant | DX: B34.9 Viral infection, unspecified (principal) ==

== ENCOUNTER → 2025-03-02 | Outpatient (REF) | payer OTHER, MEDICAID ==
[~2025-03-02] MED LIST changes: -PROZ20CA11 PO; +PROZ20CA12 PO
[2025-03-02 17:33] LABS: URINE PREG TEST NEGATIVE (NEGATIVE)
== END ==
LOC: M LAB REF 17:07
PROVIDERS: ATTEND Physician Assistant
DX: N91.2 Amenorrhea, unspecified (principal)